=== PATIENT | male | born 1980 | race Hispanic/Latino ===

== ENCOUNTER 2023-04-26 15:34 | Inpatient (IN) | payer OTHER ==
[~2023-04-26] VITALS: Ht 188 cm; Wt 98.4 kg
[2023-04-26] MEDS ORDERED: Vancomycin IV 1 GM in SODIUM CHLORIDE 0.9% 250ML 250 ML IV ONE (16:00)
[2023-04-26] MEDS ORDERED: SODIUM CHLORIDE 0.9% 1000ML 1,000 ML IV STA (16:00)
[2023-04-26 16:12] LABS: BASOPHILS # (AUTO) 0.1 (0.0-0.1); BASOPHILS % 0.4 % (0.0-1.0); EOSINOPHILS # (AUTO) 0.1 (0.0-0.4); EOSINOPHILS % 0.6 % (0.0-6.0); HEMATOCRIT 37.3 % (38.2-49.6); HEMOGLOBIN 12.5 g/dL (14.0-18.0); LYMPHOCYTES # (AUTO) 1.5 (1.0-3.2); LYMPHOCYTES % 10.4 % (18.0-39.1); MEAN CORPUSCULAR HEMOGLOBIN 29.3 pg (28-32); MEAN CORPUSCULAR HGB CONC 33.5 g/dL (31-35); MEAN CORPUSCULAR VOLUME 87.4 fL (81-99); MONOCYTES # (AUTO) 1.2 (0.2-0.8); MONOCYTES % 8.2 % (4.4-11.3); NEUTROPHILS # (AUTO) 11.5 (2.1-6.9); NEUTROPHILS % 80.1 % (38.7-80.0); PLATELET COUNT 234 x10e3/uL (140-360); RED BLOOD COUNT 4.27 x10e6/uL (4.3-5.7)
[2023-04-26 16:22] LABS: INR 1.08; PROTHROMBIN TIME 14.7 seconds (11.9-14.5)
[2023-04-26 16:23] LABS: PARTIAL THROMBOPLASTIN TIME 28.7 seconds (23.8-35.5)
[2023-04-26 16:32] LABS: ALBUMIN 3.5 g/dL (3.5-5.0); ALBUMIN/GLOBULIN RATIO 1.1 (0.8-2.0); ANION GAP 12.9 mmol/L (8-16); CALCIUM 8.6 mg/dL (8.4-10.2); CREATININE, SERUM 0.99 mg/dL (0.72-1.25); POTASSIUM 3.9 mmol/L (3.5-5.1)
[2023-04-26] MEDS ORDERED: ONDANSETRON HCL INJ 2MG/ML 2ML 2 MG/ML VIAL IV PRN (18:00)
[2023-04-26] MEDS ORDERED: SODIUM CHLORIDE 0.9% 1000ML 1,000 ML IV SCH (18:00)
[2023-04-26] MEDS: HYDROCODONE/APAP 10MG-325MG TAB PO PRN (18:59)
[2023-04-26 20:00] VITALS: BP 134/68; PULSE 94; RESP 18; TEMP 98.6; O2SAT 96
[2023-04-26] MEDS ORDERED: DIPHENHYDRAMINE HCL 25 MG CAP PO PRN (23:45)
[2023-04-26] MEDS ORDERED: ALBUTEROL/IPRATROPIUM 3 ML NEB NEB PRN (23:45)
[2023-04-26] MEDS ORDERED: DEXTROSE 50% SYRINGE 50 ML IV PRN (23:45)
[2023-04-26] MEDS ORDERED: SIMETHICONE 80 MG CHEW PO PRN (23:45)
[2023-04-26] MEDS ORDERED: MELATONIN 5 MG TABLET PO PRN (23:45)
[2023-04-26] MEDS ORDERED: ACETAMINOPHEN 325 MG TAB PO PRN (23:45)
[2023-04-26] MEDS ORDERED: BENZONATATE 100 MG CAP PO PRN (23:45)
[2023-04-26] MEDS ORDERED: LIDOCAINE 4% PATCH TP PRN (23:45)
[2023-04-26] MEDS ORDERED: POTASSIUM CHLORIDE 20 MEQ TAB CR PO PRN (23:45)
[2023-04-26] MEDS ORDERED: DOCUSATE SODIUM 100 MG CAP PO PRN (23:45)
[2023-04-26] MEDS ORDERED: HYDRALAZINE HCL 20 MG/ML VIAL IV PRN (23:45)
[2023-04-27] VITALS (8 sets, daily range): BP systolic 111–121; BP diastolic 64–79; PULSE 65–77; RESP 18–19; TEMP 98.1–99; O2SAT 97–99
[2023-04-27] MEDS: Vancomycin IV 1 GM in SODIUM CHLORIDE 0.9% 250ML 250 ML IV SCH ×2 (04:18→15:33)
[2023-04-27 05:34] LABS: BASOPHILS # (AUTO) 0.1 (0.0-0.1); BASOPHILS % 0.4 % (0.0-1.0); EOSINOPHILS # (AUTO) 0.2 (0.0-0.4); EOSINOPHILS % 1.3 % (0.0-6.0); HEMATOCRIT 34.2 % (38.2-49.6); HEMOGLOBIN 11.2 g/dL (14.0-18.0); LYMPHOCYTES # (AUTO) 1.7 (1.0-3.2); LYMPHOCYTES % 13.3 % (18.0-39.1); MEAN CORPUSCULAR HEMOGLOBIN 29.2 pg (28-32); MEAN CORPUSCULAR HGB CONC 32.7 g/dL (31-35); MEAN CORPUSCULAR VOLUME 89.3 fL (81-99); MONOCYTES # (AUTO) 1.3 (0.2-0.8); MONOCYTES % 10.5 % (4.4-11.3); NEUTROPHILS # (AUTO) 9.3 (2.1-6.9); NEUTROPHILS % 74.1 % (38.7-80.0); PLATELET COUNT 189 x10e3/uL (140-360); RED BLOOD COUNT 3.83 x10e6/uL (4.3-5.7); RED CELL DISTRIBUTION WIDTH 14.3 % (11.7-14.4)
[2023-04-27 06:10] LABS: CHOL/HDL RATIO 2.7 (3.9-4.7); MAGNESIUM 1.7 MG/DL (1.3-2.1)
[2023-04-27 06:11] LABS: ALBUMIN 2.9 g/dL (3.5-5.0); ALBUMIN/GLOBULIN RATIO 1.1 (0.8-2.0); CALCIUM 7.9 mg/dL (8.4-10.2); CREATININE, SERUM 0.89 mg/dL (0.72-1.25)
[2023-04-27 06:30] LABS: THYROID STIMULATING HORMONE 2.248 uIU/mL (0.350-4.940)
[2023-04-27] MEDS: PANTOPRAZOLE SOD 40 MG TABEC PO SCH (08:03)
[2023-04-27] MEDS: HYDROCODONE/APAP 10MG-325MG TAB PO PRN (15:31)
[2023-04-27] MEDS ORDERED: ENOXAPARIN SOD INJ 40 MG/0.4 ML SYR SC SCH (17:00)
[2023-04-28] MEDS: Vancomycin IV 1 GM in SODIUM CHLORIDE 0.9% 250ML 250 ML IV SCH (04:46)
[2023-04-28 07:51] VITALS: BP 130/70; PULSE 84; RESP 20; TEMP 99; O2SAT 97
[2023-04-28 08:00] VITALS: BP 130/70; PULSE 84; RESP 20; TEMP 99; O2SAT 97
[2023-04-28] MEDS: PANTOPRAZOLE SOD 40 MG TABEC PO SCH (08:38)
[2023-04-28] MEDS ORDERED: DOXYCYCLINE HY100 MG PO ×2 (12:06→12:48)
[2023-04-28] MEDS ORDERED: CIPRO500 MG PO ×2 (12:07→12:47)
[2023-04-28 12:59] VITALS: PULSE 82; RESP 18; O2SAT 97
[2023-04-28] MEDS ORDERED: ONDANSETRON HCL 4 MG ORAL DISINTEGRATING TAB PO PRN (13:30)
== END 2023-04-28 14:13 | disposition home or self-care (01) | DRG 603 ==
LOC: ER 16:03 → ERHOLD 18:03 → MED/SURG 19:51 → OBSVTOIN 04-28 14:07
PROVIDERS: ADMIT Internal Medicine; ATTEND Internal Medicine
DX: L03.116 Cellulitis of left lower limb (principal); M06.9 Rheumatoid arthritis, unspecified
CPT/HCPCS: 36415; 80053; 80061; 83036; 83735; 84443; 84484; 85025; 85610; 85730; 87040; 93005; 93970; 94799; 99284; G0378; J0692; J1650; J7030; J7050